=== PATIENT | female | born 1935 | race Caucasian/White ===

== ENCOUNTER 2021-11-29 10:00 | Outpatient (RCR) | payer MEDICARE, SELFPAY | END 2021-11-29 13:08 | disposition home or self-care (01) | LOC: HO.PTCHIC 10:00 | PROVIDERS: PCP Internal Medicine Endocrinology, Diabetes & Metabolism; Visit Provider Pain Medicine Interventional Pain Medicine | DX: M79.604 Pain in right leg (principal); M79.605 Pain in left leg | CPT/HCPCS: 97110; 97112; 97140; 97162; 97164 ==